=== PATIENT | female | born 1970 | race Two or more races ===

== ENCOUNTER 2016-10-27 13:22 | Emergency (ER) | payer MEDICAID, OTHER ==
[2016-10-27 13:48] VITALS: BP 109/76; PULSE 80; RESP 20; TEMP 98.6; O2SAT 96
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
[2016-10-27] MEDS ORDERED: OXYCODONE/APAP 5/325MG PREPACK#4 BTL TAKEHOME ONE (15:00)
[2016-10-29 13:44] LABS: CHLAMYDIA AMPLIFICATION GENPRB NEGATIVE (NEGATIVE)
== END 2016-10-27 15:14 | disposition home or self-care (01) ==
LOC: CED 13:22
DX: S20.229A Contusion of unspecified back wall of thorax, initial encounter (principal); S30.811A Abrasion of abdominal wall, initial encounter; M54.9 Dorsalgia, unspecified; R10.2 Pelvic and perineal pain; N89.8 Other specified noninflammatory disorders of vagina; E66.9 Obesity, unspecified; Z68.36 Body mass index [BMI] 36.0-36.9, adult; Y04.8XXA Assault by other bodily force, initial encounter
CPT/HCPCS: 72070-PO; 72100-PO; 99214-PO; G0463-PO

== ENCOUNTER 2016-11-23 09:02 | Emergency (ER) | payer MEDICAID ==
[2016-11-23 09:13] VITALS: BP 127/89; PULSE 86; RESP 20; TEMP 98.8; O2SAT 98
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
== END 2016-11-23 09:50 | disposition home or self-care (01) ==
LOC: CED 09:02
DX: L03.211 Cellulitis of face (principal); Z91.040 Latex allergy status

== ENCOUNTER 2017-02-22 17:38 | Emergency (ER) | payer MEDICAID ==
[2017-02-22 17:48] VITALS: BP 101/78; PULSE 78; RESP 20; TEMP 98.6; O2SAT 96
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
[2017-02-22 18:04] LABS: LEUKOCYTE ESTERASE,URINE NEGATIVE (NEGATIVE); NITRITE,URINE NEGATIVE (NEGATIVE)
[2017-02-22 18:05] LABS: COLOR YELLOW
[2017-02-22 18:11] LABS: BACTERIA 2+ /hpf (NONE SEEN); MUCUS 1+ /lpf (NONE-1+); WBC,URINE OCCASIONAL /hpf (0-3); YEAST OCCASIONAL /hpf (NONE SEEN)
== END 2017-02-22 18:26 | disposition home or self-care (01) ==
LOC: CED 17:38
DX: S92.352A Displaced fracture of fifth metatarsal bone, left foot, initial encounter for closed fracture (principal); R31.9 Hematuria, unspecified; Z91.040 Latex allergy status; W01.0XXA Fall on same level from slipping, tripping and stumbling without subsequent striking against object, initial encounter
CPT/HCPCS: 73630-PO; 81003-PO; 81015-PO; 81025-PO; L4386

== ENCOUNTER 2017-04-21 12:55 | Emergency (ER) | payer MEDICAID ==
[2017-04-21 13:17] VITALS: O2SAT 96
[2017-04-21 13:55] LABS: % IMMATURE GRANULYOCYTES 0.2 % (0.0-1.1); ABSOLUTE IMMATURE GRANULOCYTES 0.01 10^3/uL (0.00-0.10); ADD DIFF? NO; ADD MORPH? NO; ADD SCAN? NO; ATYPICAL LYMPHOCYTE FLAG 30 (0-99); FRAGMENT RBC FLAG 0 (0-99); HEMATOCRIT 39.3 % (38.0-47.0); HEMOGLOBIN 13.5 g/dL (12.6-16.3); LEFT SHIFT FLG 0 (0-99); LIPEMIA HEMOLYSIS FLAG 90 (0-99); MEAN CELL HEMOGLOBIN 32.4 pg (27.9-34.1); MEAN CELL HEMOGLOBIN CONCENTR. 34.4 g/dL (32.4-36.7); MEAN CELL VOLUME 94.2 fL (81.5-99.8); MEAN PLATELET VOLUME 9.9 fL (8.7-11.7); PLATELET CLUMPS FLAG 0 (0-99); PLATELET COUNT 222 10^3/uL (150-400); RED BLOOD CELL COUNT 4.17 10^6/uL (4.18-5.33); RED CELL DISTRIBUTION WIDTH 13.1 % (11.5-15.2)
[2017-04-21 14:10] LABS: ANION GAP 13 mEq/L (8-16); CALCIUM 9.1 mg/dL (8.5-10.4); CARBON DIOXIDE 21 mEq/l (22-31); CHLORIDE 107 mEq/L (97-110); CREATININE 0.6 mg/dL (0.6-1.0); GLOMERULAR FILTRATION RATE > 60; GLUCOSE 97 mg/dL (70-100); SODIUM 141 mEq/L (134-144)
--- NOTE | 2017-04-21 14:20 | EDPHY ---
H & P Time Seen by Provider: 04/21/17 13:23 HPI/ROS: This patient complains of pruritic erythematous rash her chest in baby since January to varying degrees, worsened over the past few days. She has had minimal improvement from Benadryl and came in for evaluation. She has switched to hypoallergenic soaps and can't think of the likely allergen other than some exposure to dogs with a known dog allergy. She also reports darker urine than usual that was foul smelling last week and seems to have improved but is still anxious about potential UTI as she had significant pyelonephritis last year and renal insufficiency that resolved with hydration. She requests lab work to make sure that she does not have recurrent kidney problems. ROS: No fevers or chills HEENT: Some coryza that she attributes to environmental allergens were since smoking ear firm surrounding force virus. No facial pain. Ear pain. No sore throat. No stridor. No mouth lesions. Pulmonary: No cough or shortness of breath. No wheezing. Cardiovascular: No chest pain or lightheadedness. GI: No nausea vomiting. Neuro: Difficulty sleeping due to symptoms. Reports fatigue secondary to this. No focal neuro symptoms or headache. 7 point ROS is otherwise negative. Past Medical/Surgical History: Pyelonephritis Multiple drug allergies Smoking Status: Current some day smoker Physical Exam: General Appearance: Alert, no distress. Eyes: Pupils equal and round no pallor or injection. ENT, Mouth: Mucous membranes moist. Respiratory: There are no retractions, lungs are clear to auscultation. Cardiovascular: Regular rate and rhythm. Gastrointestinal: Abdomen is soft and nontender, no masses, bowel sounds normal. Neurological: GCS 15 with no focal deficits Skin: Erythematous papules and plaques a chest with slightly dry skin. No petechia or purpura. No mucosal lesions on her lips. Musculoskeletal: Neck is supple nontender. Extremities are symmetrical, full range of motion. Psychiatric: Mood and affect normal except for mild anxiety DIFFERENTIAL DIAGNOSIS: After history and physical exam differential diagnosis was considered for atopic dermatitis, rule out UTI, rule out renal insufficiencyilure Constitutional: Initial Vital Signs Temperature (C) 36.4 C 04/21/17 13:11 Heart Rate 63 04/21/17 13:11 Respiratory Rate 16 04/21/17 13:11 Blood Pressure 117/84 H 04/21/17 13:11 O2 Sat (%) 96 09/26/17 13:11 O2 Delivery Mode Room Air Allergies/Adverse Reactions: Penicillins Allergy (Severe, Verified 04/22/17 12:25) Swelling/neck,face,throat hydrocodone [Hydrocodone] Allergy (Mild, Verified 04/22/17 12:25) Itching ibuprofen Allergy (Unknown, Verified 04/22/17 12:25) morphine Allergy (Unknown, Verified 04/22/17 12:25) latex [Latex] Allergy (Verified 04/22/17 12:25) levofloxacin [From Levaquin] Allergy (Verified 04/22/17 12:25) Home Medications: Medication Instructions Recorded VITAMIN D 02/22/17 Hydrocortisone 0.2% Valerate 1 ramona TP BID #15 g 04/21/17 [Westcort 0.2% Cream (*)] IRON 04/21/17 hydrOXYzine HCL [Hydroxyzine HCl] 50 - 100 mg PO QID PRN #80 tablet 04/21/17 oxyCODONE/APAP 5/325 [Percocet 1 - 2 tab PO Q4H PRN #10 tab 04/22/17 5/325 (RX)] MDM/Departure - [facility] ED Course/Re-evaluation: Discussion: Her skin findings are most consistent with an atopic dermatitis. Counseled regarding this. Given the duration of time of her symptoms without significant improvement from antihistamines, suggested oral corticosteroid. The patient declined this treatment choice due to feeling poorly on oral steroids in the past, preferring to try steroid cream 1st. She has no clinical findings to suggest anaphylaxis, airway compromise or other complicating factors at this time. - Depart Disposition: Home, Routine, Self-Care Clinical Impression: Microscopic hematuria Atopic dermatitis Qualifiers: Atopic dermatitis type: unspecified Qualified Code(s): L20.9 - Atopic dermatitis, unspecified Condition: Good Instructions: Dermatitis (ED) Additional Instructions: Diagnosis: Atopic dermatitis Plan: Westcort cream-steroid cream as prescribed 2 times a day for the next 7- 14 days until symptoms resolve Hydroxyzine for itching as needed. Follow up with restaurant culinary manager and photograph editor-Dr. Lamb and Dr. Wakefield Prescriptions: Hydrocortisone 0.2% Valerate [Westcort 0.2% Cream (*)] 1 ramona TP BID #15 g hydrOXYzine HCL [Hydroxyzine HCl] 50 - 100 mg PO QID PRN #80 tablet PRN Reason: Itching Referrals: Jakub Cuevas DO [Primary Care Provider] - As per Instructions Christoph LAMB [Medical Doctor] - As per Instructions NELY WAKEFIELD [Medical Doctor] - As per Instructions
[2017-04-21 14:21] LABS: COLOR YELLOW; LEUKOCYTE ESTERASE,URINE NEGATIVE (NEGATIVE); NITRITE,URINE NEGATIVE (NEGATIVE); PH,URINE 6.5 (5.0-7.5)
[2017-04-21 14:38] LABS: MUCUS 2+ /lpf (NONE-1+)
[2017-04-21 14:39] LABS: BACTERIA TRACE /hpf (NONE SEEN); RBC,URINE 25-50 /hpf (0-3); WBC,URINE 0-1 /hpf (0-3)
[2017-04-21 14:40] LABS: YEAST OCCASIONAL /hpf (NONE SEEN)
[2017-04-21 15:14] VITALS: BP 122/82; PULSE 68; RESP 18; TEMP 98.8
== END 2017-04-21 15:14 | disposition home or self-care (01) ==
LOC: CED 12:55
DX: L20.9 Atopic dermatitis, unspecified (principal); R31.29 Other microscopic hematuria; F17.200 Nicotine dependence, unspecified, uncomplicated; Z91.040 Latex allergy status
CPT/HCPCS: 80048-PO; 81003-PO; 81015-PO; 85025-PO

== ENCOUNTER 2017-04-22 12:16 | Emergency (ER) | payer MEDICAID ==
[2017-04-22 12:25] VITALS: RESP 18; TEMP 98.2
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
[2017-04-22] MEDS ORDERED: ACETAMINOPHEN 325 MG TAB PO ONE (12:42)
[2017-04-22 15:28] VITALS: BP 110/82; PULSE 95; O2SAT 97
== END 2017-04-22 14:26 | disposition home or self-care (01) ==
LOC: CED 12:16
DX: S92.412A Displaced fracture of proximal phalanx of left great toe, initial encounter for closed fracture (principal); W20.8XXA Other cause of strike by thrown, projected or falling object, initial encounter; F17.200 Nicotine dependence, unspecified, uncomplicated; Z91.040 Latex allergy status
CPT/HCPCS: 73660-PO